=== PATIENT | male | born 1985 | race Caucasian/White ===

== ENCOUNTER 2017-02-18 14:26 | Day surgery (SDC) | payer OTHER ==
[~2017-02-18] VITALS: Ht 185.4 cm; Wt 88.0 kg
--- NOTE | 2017-02-18 07:11 | PCM.HPANE ---
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 Provider: Attending Provider:Brandon Garcia MD Primary Care Physician:Wilfrido Other Provider:Taisha Lucas Anesthesia Reason for Visit Crohn's Disease Ht/WT & BMI Body Mass Index Allergies Coded Allergies: Opioids - Morphine Analogues (Verified Allergy, Unknown, 05/16/15) MS Uncoded Allergies: Iron (Allergy, Unknown, 01/03/04) MS (Allergy, Unknown, 01/03/04) NKA (Allergy, Unknown, 01/03/04) Opiate Agonists (Narcotics) (Allergy, Unknown, 01/03/04) MS Past Anesthesia History Anesthesia History: Denies:: Abnormal Airway, Anesthesia Reactions, Difficult Intubation, Fam Anesthesia Reaction, Fam Malignant Hypertherm, Malignant Hyperthermia Diabetes History Hx Diabetes?: No MRSA MRSA: No Medications Reported Medications Ciprofloxacin 250 Mg [id number] Mg PO BID Ref 0 10/31/15 Clarithromycin 500 Mg [id number] Mg PO BID Ref 0 10/31/15 Rifampin 150 Mg [id number] Mg PO BID 10/31/15 Rifaximin (Xifaxan)200 Mg [id number] Mg PO BID #90 TABLET 10/31/15 History History of ENT Problems?: No HEENT History: Denies:: Abnormal Airway Difficult Intubation Dysphagia Hearing Problem Denture Type: None Teeth Condition: Within Normal Limits Hx of Heart Problems?: No Cardiovascular History: Denies:: AICD Atrial Fibrillation Chest Pain Hypertension Pacemaker Valvular Heart Disease Hx of Respiratory Problem?: No Respiratory History: Denies:: Asthma COPD Cough Hemoptysis Pneumonia Tuberculosis Hx Neurologic Problems?: No Neurological History: Denies:: CVA Hx of GI Problems?: Yes Hx of Problems?: No Male Hx: Denies:: Prostate Problems Skin History: Denies:: History Skin Disorders? Hx Musculoskeletal Problems?: No Musculoskeletal History: Denies:: Joint Replacement Hx of Psycho/Social Problems?: No Psycho Social History: Denies:: Anxiety Hx Depression Hx Surgeries?: Yes (bowel resection) Hx Any Other Health Problems?: No Hx Diabetes: No Hx Alcohol Use: No Smoking Status: Never Smoker Stop/Bang Risk Assessment Category Category 1A: Patient has history of documented sleep apnea, and HAS NOT received any narcotic, sedative or anesthesia administration during this stay. Category 1B: Patient has history of documented sleep apnea, and HAS received any narcotic , sedative or anesthesia administration during this stay Category 2: Patient has SUSPECTED Obstructive Sleep Apnea, and HAS received any narcotic , sedative or anesthesia administration during this stay. Category 3: Patient has SUSPECTED Obstructive Sleep Apnea and HAS NOT received narcotic, sedative or anesthesia administration during this stay. Category 4: Outpatient in Procedural Areas with known sleep apnea or who screen positive for High Risk via the STOP/BANG questionnaire. Exam Exam General Appearance: Alert, Oriented X3, Cooperative HEENT/AIRWAY: MP 2, Neck Movement (from), Mouth Opening (wnl) Lungs: Clear to Auscultation Heart: Exam Unremarkable Plan Impression Patient chart reviewed, patient interviewed and anesthestic plan with risks, benefits, and alternatives discussed, and informed consent obtained. ASA Physical Status: ASA2 Mod Systemic Disease Anesthetic Plan: GA Bene/Risks/Altern/Consents: Yes HP Complete Prior to Induction: Yes Solomon Potts MD February 18, 2017 07:11
[~2017-02-18 14:26] MED LIST: CIPR250T3 PO; CLAR500T PO; RIFA150C2 PO; RIFA200T7 PO
[2017-02-18] MEDS ORDERED: Propofol 10,000 mCg/mL 20 mL Inj ONE (14:27)
[2017-02-18 15:32] VITALS: BP 124/80; PULSE 91; RESP 16; O2SAT 100
[2017-02-18] MEDS ORDERED: Lactated Ringer's 1,000 ML IV ONE (15:50)
[2017-02-18] MEDS ORDERED: Lactated Ringer's 1,000 ML IV SCH (15:51)
[2017-02-18] MEDS ORDERED: Ondansetron 2 mg/mL 2 mL Inj IVPUSH PRN (15:55)
[2017-02-18] MEDS ORDERED: MetoCLOpramide 5 mg/mL 2 mL Inj IVPUSH PRN (15:55)
[2017-02-18 16:28] VITALS: BP 122/74; PULSE 63; RESP 16; O2SAT 100
--- NOTE | 2017-02-18 16:33 | PCM.ANEP1 ---
Post Anesthesia PACU Phase 1 Assessment Vital Signs Vital Signs Date Time Temp Pulse Resp B/P Pulse Ox O2 Delivery O2 Flow Rate FiO2 02/18/17 16:28 63 16 122/74 100 Room Air 02/18/17 15:32 37 91 16 124/80 100 Room Air Anesthetic Administered: GA Level of Alertness: Awake, talking BROOKS's with Equal Strength: Yes Pain: No Nausea or Vomiting: No CV Function & Hydration Stable: No Airway Device: Oxygen Delivery: Room Air Lungs: Normal Air Movement PACU Phase 2 Assessment Complications: No Follow up Care: No Patient Instructions Provided: N/A Solomon Potts MD February 18, 2017 16:33
[2017-02-18 16:39] VITALS: BP 111/73; PULSE 68; RESP 16; O2SAT 100
[2017-02-18 16:48] VITALS: BP 115/71; PULSE 67; RESP 16; O2SAT 100
--- NOTE | 2017-02-18 16:49 | ENDO ---
[address] [address] ENDOSCOPY PROCEDURE PATIENT: MILAD CUI : 1985 MR#: [id number] ADMIT: 02/18/2017 JOB ID: [id number] DATE OF PROCEDURE: 02/18/2017 PROCEDURE: Colonoscopy with balloon dilatation under fluoroscopy. INDICATIONS: A 31-year-old male with Crohn's and a history of right hemicolectomy with mild anastomotic stenosis. He has been having symptoms of right lower quadrant discomfort in spite of increased dose of Remicade. Repeat colonoscopic examination is pursued for empiric dilatation of the anastomosis. EQUIPMENT: [facility]DC SEDATION: Monitored anesthesia as provided by Dr. Rodríguez Potts. COMPLICATIONS: None identified. BOWEL PREPARATION: Very adequate. PROCEDURE INFORMATION: After the risks and benefits were explained, written and verbal informed consent was obtained. The patient was brought into the endoscopy suite and placed into the left lateral decubitus position. Sedation was achieved using the above stated medications. Digital rectal examination was accomplished. No significant pathology appreciated. The scope was introduced into the rectum and advanced to the right hemicolectomy anastomosis. I was easily able to navigate through this into the yas-terminal ileum. I did not see any evidence of active inflammation. We empirically dilated at 18, 19 and 20 mm over the wire using fluoroscopy as guidance. The scope was thereafter slowly withdrawn to carefully examine the mucosa for any defects or lesions. Multiple direct views were made through the dentate line. The colon was decompressed. The scope removed from the patient who tolerated the procedure well. FINDINGS: No significant inflammation seen at the level of the anastomosis nor in the yas-terminal ileum. There was some minimal erythema through the sigmoid region but otherwise the colonic mucosa looked healthy as well. The anastomosis was empirically dilated as above. I did not see any significant waist under fluoroscopy with the balloon at any of the above described settings. ENDOSCOPIC DIAGNOSES: Empiric right hemicolectomy anastomosis dilatation to 20 mm. RECOMMENDATIONS: 1. Continue current medical regimen including the 900 mg Remicade every eight weeks. 2. Continue to more comprehensively chew every single mouthful to avoid any larger food material having to pass through the GI tract. 3. Follow up in GI clinic six months or sooner any time as needed.
== END 2017-02-18 23:59 | disposition home or self-care (01) ==
LOC: END 14:26
PROVIDERS: ATTEND Internal Medicine Gastroenterology
DX: K63.89 Other specified diseases of intestine (principal); K50.90 Crohn's disease, unspecified, without complications; R10.31 Right lower quadrant pain
CPT/HCPCS: 45386; 76000; J2250; J7120